=== PATIENT | male | born 1975 | race American Indian/Alaskan Native ===

== ENCOUNTER 2017-01-22 18:04 | Emergency (ER) | payer SELFPAY ==
--- NOTE | 2017-01-22 20:42 | XRay Report ---
FINAL REPORT PROCEDURE: XR ANKLE 3+V RT TECHNIQUE: Right ankle, three views HISTORY: ankle pain COMPARISON: No prior studies are available for comparison. FINDINGS: There is medial and lateral soft tissue swelling. The ankle mortise and talar dome are intact. There is questionable cortical irregularity of the anterior calcaneus on the lateral view. IMPRESSION: Questionable cortical irregularity of the anterior calcaneus on the lateral view. If there is concern for calcaneus fracture, dedicated views of the calcaneus or CT may be helpful for further evaluation. Otherwise no fracture is seen
--- NOTE | 2017-01-22 23:53 | Emergency Department Report ---
ED Lower Extremity HPI - General Chief Complaint: Extremity Injury, Lower Stated Complaint: RIGHT ANKLE INJURY Time Seen by Provider: 01/22/17 23:26 Source: patient Mode of arrival: Ambulatory Limitations: No Limitations - History of Present Illness Initial Comments: This is a 41-year-old male nontoxic, well nourished in appearance, no acute signs of distress presents to the ED complaining of right ankle pain 1 day. Patient that he was playing basketball when a java development team lead jumped and landed on his right ankle/Achilles tendon region. Associated symptoms includes swelling and pain that is described as aching with level of 10 out of 10. He denies any numbness, tingling, fever, chills, headache, nausea, vomiting, chest pain or shortness of breath. Patient denies any allergies or PMH. MD Complaint: ankle injury -: Gradual, days(s) (1) Injury: Ankle: Right Type of Injury: blunt Place: street/outdoors Severity: moderate Severity scale (0 -10): 10 Improves With: nothing Worsens With: nothing Context: direct blow Associated Symptoms: swelling, able to partially bear weight, ambulatory. denies: snap/pop sensation, numbness, tingling - Related Data Previous Rx's Medication Instructions Recorded Last Taken Type traMADol [Ultram] 50 mg PO Q6HR PRN #15 tablet 01/23/17 Unknown Rx Allergies Allergy/AdvReac Type Severity Reaction Status Date / Time No Known Allergies Allergy Unverified 01/22/17 18:33 ED Review of Systems ROS: Stated complaint: RIGHT ANKLE INJURY Other details as noted in HPI Constitutional: denies: chills, fever Eyes: denies: eye pain, eye discharge, vision change ENT: denies: ear pain, throat pain Respiratory: denies: cough, shortness of breath, wheezing Cardiovascular: denies: chest pain, palpitations Endocrine: no symptoms reported Gastrointestinal: denies: abdominal pain, nausea, diarrhea Genitourinary: denies: urgency, dysuria Musculoskeletal: denies: back pain, joint swelling, arthralgia Skin: denies: rash, lesions Neurological: denies: headache, weakness, paresthesias Psychiatric: denies: anxiety, depression Hematological/Lymphatic: denies: easy bleeding, easy bruising ED Past Medical Hx - Past Medical History Previous Medical History?: No - Surgical History Additional Surgical History: Knee sgy - Social History Smoking Status: Former Smoker Substance Use Type: Alcohol - Medications Home Medications: Home Medications Medication Instructions Recorded Confirmed Last Taken Type traMADol [Ultram] 50 mg PO Q6HR PRN #15 tablet 01/23/17 Unknown Rx ED Physical Exam - General Limitations: No Limitations General appearance: alert, in no apparent distress - Head Head exam: Present: atraumatic, normocephalic, normal inspection - Eye Eye exam: Present: normal appearance, PERRL, EOMI. Absent: scleral icterus, conjunctival injection, nystagmus, periorbital swelling, periorbital tenderness Pupils: Present: normal accommodation - ENT ENT exam: Present: normal exam, normal orophraynx, mucous membranes moist, TM's normal bilaterally, normal external ear exam - Neck Neck exam: Present: normal inspection, full ROM. Absent: tenderness, meningismus, lymphadenopathy, thyromegaly - Respiratory Respiratory exam: Present: normal lung sounds bilaterally. Absent: respiratory distress, wheezes, rales, rhonchi, stridor, chest wall tenderness, accessory muscle use, decreased breath sounds, prolonged expiratory - Cardiovascular Cardiovascular Exam: Present: regular rate, normal rhythm, normal heart sounds. Absent: bradycardia, tachycardia, irregular rhythm, systolic murmur, diastolic murmur, rubs, gallop - GI/Abdominal GI/Abdominal exam: Present: soft, normal bowel sounds. Absent: distended, tenderness, guarding, rebound, rigid, diminished bowel sounds - Rectal Rectal exam: Present: deferred - Extremities Exam Extremities exam: Present: normal inspection, full ROM, tenderness, normal capillary refill. Absent: pedal edema, joint swelling, calf tenderness - Expanded Lower Extremity Exam Right Hip exam: Present: normal inspection, full ROM Upper Leg exam: Present: normal inspection, full ROM Knee exam: Present: normal inspection, full ROM Lower Leg exam: Present: normal inspection, full ROM Ankle exam: Present: normal inspection, full ROM, tenderness, swelling. Absent : abrasion, laceration, ecchymosis, deformity, crepidus, dislocation, erythema, anterior draw sign Foot/Toe exam: Present: normal inspection, full ROM. Absent: tenderness, swelling, abrasion, laceration, ecchymosis, deformity, crepidus, dislocation, erythema, amputation, puncture wound, foreign body, calcaneal tenderness, tenderness at base of 5th metatarsal, nail avulsion, subungual hematoma Neuro vascular tendon exam: Present: no vascular compromise. Absent: pulse deficit, abnormal cap refill, motor deficit, sensory deficit, tendon deficit, pallor, abnormal 2-point discrimination, decreased fine/light touch, foot drop, peroneal nerve deficit, significant pain with passive ROM of distal joint Gait: Positive: observed and limited by pain 1 - swelling and pain - Back Exam Back exam: Present: normal inspection, full ROM. Absent: tenderness, CVA tenderness (R), CVA tenderness (L), muscle spasm, paraspinal tenderness, vertebral tenderness, rash noted - Neurological Exam Neurological exam: Present: alert, oriented X3, CN II-XII intact, normal gait, reflexes normal - Psychiatric Psychiatric exam: Present: normal affect, normal mood - Skin Skin exam: Present: warm, dry, intact, normal color. Absent: rash - Other Other exam information: Positive Corrales test of the right extremity ED Course Vital Signs 01/22/17 18:34 Temperature 99 F Pulse Rate 80 Respiratory 16 Rate Blood Pressure 151/91 O2 Sat by Pulse 99 Oximetry - Reevaluation(s) Reevaluation #1: 01/22/17 23:56 Patient is speaking full sentences with no signs of distress. Reevaluation #2: 01/22/17 23:56 Ice applied to affected region. Reevaluation #3: 01/23/17 01:57 Post-splint exam by myself and there is no signs of numbness, tingling, patient denies splint being too tight. Patient able to move digits freely. ED Lower Extremity MDM - Medical Decision Making 40-year-old male presents with questionable right calcaneus fracture as well as ruptured Achilles tendon. Patient is stable. Patient examined by myself. There was a positive Corrales's test. Patient has been obtained and dictated by Dr. [place]. Impression; questionable cortical irregularity of the anterior calculus on the lateral view. Patient notified of x-ray findings with no further questions nor by the patient. Patient received a posterior splint. Post-splint examined by myself and there is no signs of numbness, tingling, patient denies splint being too tight. Normal capillary refill less than 2 seconds. Patient received Ultram at discharge. Patient was instructed to follow up with a orthopedic doctor in 24 hours or symptoms such as numbness, tingling, or any abnormal worsening symptoms return to emergency room as soon as possible. Pt was given crutches and was instructed no weight bearing. Elevation has been applied that extremity in the ED. Patient was instructed to rest, elevate, and ice extremity. At time time of discharge, the patient does not seem toxic or ill in appearance. No acute signs of distress noted. Patient agrees to discharge treatment plan of care. No further questions noted by the patient. Critical care attestation.: If time is entered above; I have spent that time in minutes in the direct care of this critically ill patient, excluding procedure time. ED Disposition Clinical Impression: Ankle sprain Qualifiers: Encounter type: initial encounter Involved ligament of ankle: unspecified ligament Laterality: right Qualified Code(s): S93.401A - Sprain of unspecified ligament of right ankle, initial encounter Achilles rupture, right Qualifiers: Encounter type: initial encounter Qualified Code(s): S86.011A - Strain of right Achilles tendon, initial encounter Disposition: - TO HOME OR SELFCARE Is pt being admited?: No Does the pt Need Aspirin: No Condition: Stable Instructions: Tramadol (By mouth), Ankle Sprain (ED), Crutch Instructions (ED) , Achilles Tendon Rupture (ED), Splint Care (ED), RICE Therapy (ED) Additional Instructions: follow up with a orthopedic doctor in 24 hours or symptoms such as numbness, tingling, or any abnormal worsening symptoms return to emergency room as soon as possible. Do not operate any machinery while taking Ultram due to sedation/drowsiness Prescriptions: traMADol [Ultram] 50 mg PO Q6HR PRN #15 tablet PRN Reason: Pain Referrals: PRIMARY CAREMD [Primary Care Provider] - 3-5 Days [facility] [Outside] - 3-5 Days [facility] [Outside] - 3-5 Days CIRILO BERNABE MD [Staff Physician] - 24 Hours Forms: Work/School Release Form(ED)
[2017-01-23 02:27] VITALS: BP 152/78
== END 2017-01-23 02:00 | disposition home or self-care (01) ==
LOC: ED 18:04
DX: S86.011A Strain of right Achilles tendon, initial encounter (principal); S93.491A Sprain of other ligament of right ankle, initial encounter; Z87.891 Personal history of nicotine dependence; X58.XXXA Exposure to other specified factors, initial encounter; Y93.67 Activity, basketball; Y92.89 Other specified places as the place of occurrence of the external cause; Y99.8 Other external cause status